=== PATIENT | male | born 1985 | race African-American/Black ===

== ENCOUNTER 2023-05-13 11:37 | Emergency (ER) | payer BC, SELFPAY ==
[2023-05-13 12:03] VITALS: BP 159/101; PULSE 64; RESP 14; TEMP 37.2; O2SAT 100
[2023-05-13 12:07] VITALS: BP 159/101; PULSE 64; RESP 14; TEMP 37.2; O2SAT 100
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
== END 2023-05-13 12:30 | disposition home or self-care (01) ==
PROVIDERS: Emergency Provider Registered Nurse
DX: G89.29 Other chronic pain (principal); M79.661 Pain in right lower leg; I10 Essential (primary) hypertension
CPT/HCPCS: 99202; G0463